=== PATIENT | male | born 1970 | race Caucasian/White ===

== ENCOUNTER 2022-10-09 12:25 | Emergency (ER) | payer OTHER, SELFPAY ==
[2022-10-09] VITALS (11 sets, daily range): BP systolic 111–169; BP diastolic 68–110; PULSE 56–70; RESP 10–26; TEMP 36.1; O2SAT 97–100; BMI 36.8
[2022-10-09] MEDS: NITROGLYCERIN 0.4 MG SL TAB SL ×2 (12:40→12:45)
--- NOTE | 2022-10-09 12:40 | ED.CHESTPAIN ---
HPI - Chest Pain General Chief Complaint: Chest Pain Stated Complaint: pain in left side shoulder SOB possible heart violeta Time Seen by Provider: 10/09/22 12:35 Source: patient Mode of arrival: EMS History of Present Illness HPI narrative: This is a 52-year-old male with no known medical issues, patient developed chest pain which is left-sided radiating to his back but is more in the left side at this point. Shortness of breath, diaphoresis and nausea about an hour prior to arrival. He took 1 dose of oxycodone. Patient states it has not improved. He is not had any syncope. He denies swelling in his extremities. No other GI or urinary symptoms. Patient states no daily medications. No prescriptions. No prior surgeries. States he quit smoking tobacco urine half ago, occasional alcohol nothing recent. No illicit. Patient has not had any aspirin today. He does not have a primary care physician. His father had an CO around age 65. Related Data Home Medications Medication Instructions Recorded Confirmed No Known Home Medications 10/09/22 10/09/22 Review of Systems Review of Systems ROS Unobtainable: All systems reviewed & are unremarkable except as noted in HPI and below Patient History Social History Smoking Status: Current every day smoker Exam Narrative Exam Narrative: GENERAL: Alert and oriented x three, diaphoretic male in moderate distress HEENT: Head normocephalic, atraumatic, EOMI, pupils reactive, face symmetric, moist mucous membranes NECK: Supple, full range of motion CARDIOVASCULAR: Regular rate and rhythm without murmurs, rubs or gallops. No JVD. No swelling bilateral lower extremities. RESPIRATORY: Breath sounds equal bilaterally, no wheezes rales or rhonchi. ABDOMEN: Soft, nontender. Normoactive bowel sounds all 4 quadrants. No guarding or rebound, rigidity, no mass, no pulsatile mass or bruit. : No CVA tenderness EXTREMITIES: Normal range of motion, no clubbing or edema. Neurovascularly intact. NEUROLOGICAL: Cranial nerves II through XII grossly intact. Moving all extremities SKIN: Warm, dry, no petechiae, no rashes or lesions. Initial Vital Signs Initial Vital Signs: Vital Signs Temperature 97 F L 10/09/22 12:27 Pulse Rate 70 10/09/22 12:27 Respiratory Rate 26 H 10/09/22 12:27 Blood Pressure 169/110 H 10/09/22 12:27 Pulse Oximetry 100 10/09/22 12:27 Oxygen Delivery Method Room Air 10/09/22 12:27 Course Orders Ordered: ED Orders 10/09/22 12:34 EKG-12 Lead Routine 10/09/22 12:39 EKG-12 Lead Stat Discontinued Medications Aspirin (Aspirin 81 Mg Chew Tab) 324 mg PO NOW ONE Stop: 10/09/22 12:40 Last Admin: 10/09/22 12:45 Dose: 324 mg Documented By: NATACHA Heparin Sodium (Porcine) (Heparin 5,000 Unit/Ml Vial) 5,000 unit IV NOW ONE Stop: 10/09/22 12:40 Last Admin: 10/09/22 12:45 Dose: 5,000 unit Documented By: NATACHA Nitroglycerin (Nitroglycerin 0.4 Mg Sl Tab) 0.4 mg SL [id number] PRN PRN Reason: Chest Pain Last Admin: 10/09/22 12:45 Dose: 0.4 mg Documented By: Admin: 10/09/22 12:40 Dose: 0.4 mg Documented By: NATACHA Vital Signs Vital signs: Vital Signs - 8 hr 10/09/22 12:40 10/09/22 12:45 10/09/22 12:27 Temperature 97 F L Pulse Rate 70 56 L 70 Respiratory Rate 26 H Blood Pressure 169/110 H 127/88 169/110 H Pulse Oximetry 100 Oxygen Delivery Method Room Air 10/09/22 12:34 10/09/22 12:35 10/09/22 12:36 Temperature Pulse Rate 62 69 Respiratory Rate 26 H Blood Pressure 169/110 H Pulse Oximetry 100 99 Oxygen Delivery Method Room Air 10/09/22 12:38 10/09/22 12:40 10/09/22 12:40 Temperature Pulse Rate 63 61 Respiratory Rate 24 20 Blood Pressure 118/76 Pulse Oximetry 99 98 Oxygen Delivery Method 10/09/22 12:41 10/09/22 12:41 10/09/22 12:42 Temperature Pulse Rate 61 56 L Respiratory Rate 10 L Blood Pressure 113/68 Pulse Oximetry 97 99 Oxygen Delivery Method 10/09/22 12:44 10/09/22 12:44 10/09/22 12:45 Temperature Pulse Rate 59 L 58 L Respiratory Rate 12 12 Blood Pressure 123/79 Pulse Oximetry 97 97 Oxygen Delivery Method 10/09/22 12:45 10/09/22 12:46 10/09/22 12:46 Temperature Pulse Rate 60 Respiratory Rate 12 Blood Pressure 114/70 111/68 Pulse Oximetry 97 Oxygen Delivery Method MDM - Chest Pain ECG Data Attestation: I personally reviewed and interpreted this ECG as follows: Interpretation: Sinus rhythm rate of 60 WA 184 QRS of 104 QTC of 402. Patient has significant depression in V1 2 and 3 has elevation starting in V4 but particularly in V5 and V6. Has some early elevation in 2 3 AVF although not true [address]-elevation on initial EKG. EKG 2. Patient has significant depression V1 2 and 3. Has elevation V5 6. Elevation in 2 3 AVF but not clearly 1 mm. Appears fairly similar to prior. [facility] Narrative Medical decision making narrative: This is a 52-year-old male who presents with complaint of chest pain shortness of breath and diaphoresis with ST changes including depression and ST elevation appears to be having an ST elevated CO. He is hypertensive 165/111. Patient is receiving aspirin, nitro and heparin here in the department. Spoke with Dr. Reyna at [facility] who accepts for transfer for STEMI. EKG has been faxed. Patient being transported [address] elevated CO. Critical Care Time Critical Care Time Critical Care Time: Yes Total Critical Care Time: 20 Attestation: The high probability of a clinically significant, sudden or life threatening deterioration of the [cardiac] system(s) required my full and direct attention, intervention and personal management. The aggregate critical care time was [] minutes. This time is in addition to time spent performing reported procedures but includes the following: [x] Data Review and interpretation [x] Patient assessment and monitoring of vital signs [x] Documentation [x] Medication orders and management Discharge Plan [facility]arture [facility] Impression: ST elevation (STEMI) myocardial infarction Prescriptions: No Action No Known Home Medications
[2022-10-09] MEDS: ASPIRIN 81 MG CHEW TAB 324 MG PO (12:45)
[2022-10-09] MEDS: HEPARIN 5,000 UNIT/ML VIAL 5000 UNIT IV (12:45)
== END 2022-10-09 12:53 | disposition short-term general hospital (02) ==
PROVIDERS: Emergency Provider Emergency Medicine
DX: I21.3 ST elevation (STEMI) myocardial infarction of unspecified site (principal)
CPT/HCPCS: 36415; 93005; 96374; 99284; 99285; J1644